=== PATIENT | male | born 1955 | race Caucasian/White ===

== ENCOUNTER → 2023-04-18 14:56 | Outpatient (REF) | payer MEDICARE, OTHER, SELFPAY | LOC: HWRAD 14:56 | PROVIDERS: ATTENDING PHYSICIAN Internal Medicine | DX: N40.1 Benign prostatic hyperplasia with lower urinary tract symptoms (principal) | CPT/HCPCS: 76857 ==

== ENCOUNTER → 2023-08-14 14:14 | Outpatient (REF) | payer MEDICARE, OTHER, SELFPAY | LOC: HWRAD 14:14 | PROVIDERS: ATTENDING PHYSICIAN Internal Medicine | DX: E78.2 Mixed hyperlipidemia (principal) | CPT/HCPCS: 75571 ==

== ENCOUNTER → 2023-09-18 11:28 | Outpatient (REF) | payer MEDICARE, OTHER, SELFPAY | LOC: PAVMRI 11:28 | PROVIDERS: ATTENDING PHYSICIAN Internal Medicine | DX: R97.20 Elevated prostate specific antigen [PSA] (principal) | CPT/HCPCS: 72197; A9575 ==

== ENCOUNTER 2024-03-19 19:00 | Emergency (ER) | payer MEDICARE, OTHER, SELFPAY ==
[2024-03-19 19:08] VITALS: BP 166/89
[2024-03-19 19:25] LABS: % Basophils 0.5 % (0-2); % Eosinophils 4.8 % (0-6); % Immature Granulocytes 1.1 % (0-0.5); % Lymphocytes 20.4 % (20.5-51.1); % Monocytes 7.9 % (1.7-9.3); % Neutrophils 65.3 % (42.2-75.2); Absolute Eosinophils 0.4 10^3/uL (0-0.7); Absolute Immature Granulocytes 0.1 10^3/uL (0-0.05); Absolute Lymphocytes 1.5 10^3/uL (1.2-3.4); Absolute Monocytes 0.6 10^3/uL (0.1-0.6); Absolute Neutrophils 4.9 10^3/uL (1.4-6.5); Hematocrit 37.9 % (39.0-52.0); Hemoglobin 13.4 g/dL (13.0-18.0); Mean Corp Hgb Conc. 35.4 g/dL (33.0-37.0); Mean Corpuscular Hgb 29.7 pg (27.0-31.0); Mean Platelet Volume 8.6 fL (7.4-10.4); Nucleated Red Blood Cells % 0 % (-); Platelet Count 175 10^3/uL (130-400); Red Blood Cell Count 4.51 10^6/uL (4.70-6.10); Red Cell Dist. Width 12.3 % (11.5-14.5); White Blood Cell Count 7.6 10^3/uL (4.8-10.8)
[2024-03-19 19:49] LABS: ALT (SGPT) 22 U/L (0-50); AST (SGOT) 23 U/L (17-59); Albumin 4.3 g/dl (3.5-5.0); Alkaline Phosphatase 75 U/L (38-126); Blood Urea Nitrogen 14 mg/dl (9-20); Calcium 9.3 mg/dl (8.4-10.2); Carbon Dioxide 25 mmol/L (22-30); Chloride 103 mmol/L (98-107); Glucose 122 mg/dl (70-99); Potassium 4.1 mmol/L (3.5-5.1); Sodium 137 mmol/L (135-145); Total Bilirubin 0.7 mg/dl (0.2-1.3); eGFR > 60.00
[2024-03-19 19:50] LABS: COVID-19 Antigen Negative (Negative)
[2024-03-19 20:54] VITALS: BMI 35.2
[2024-03-19 20:56] VITALS: BP 151/84
--- NOTE | 2024-03-19 21:41 | ED.GENMED ---
History of Present Illness
General
Chief Complaint: Cold/Flu/URI Symptoms
Source: patient
Exam Limitations: none
Time Seen by Provider: 03/19/24 20:41
Nursing documentation reviewed up to this point in time: agreed with
History of Present Illness
History of Present Illness:
Patient presents to ED secondary to 1 week history of generalized body ache, intermittent cough, headache, sore throat, along with decreased appetite. Denies chest pain or shortness of breath. Denies abdominal pain. Denies nausea, vomiting, or
diarrhea. Denies rash. Denies recent travel. However, patient has been to multiple sporting events recently preceding his symptoms, where he was in close proximity to a lot of people. Denies recent change in medications or diet. Patient also
reporting bilateral eye discharge, which is causing blurry vision. In addition, patient who has had history of gout in his toes, feels as though he is also having a flareup of his gout.
Past History
Past History
ED Past Medical History: GERD, Other (Small bowel obstructions) and Other (Sleep apnea utilizes CPAP, DVT following knee surgery)
ED Past Surgical History: Orthopedic (Knee) and Other (Hernia repair x2, bowel obstructions )
Social History
Tobacco: Non-smoker
Alcohol: Occasional
Personal:
Living: with family
Employment: Employed
Family History
Family History: Other (Noncontributory)
Review of Systems
Review of Systems
Allergies reviewed?: Yes
All Other Systems: ROS reviewed and negative except as documented in HPI and ROS
Constitutional: Reports no symptoms; Denies fever or chills
Respiratory: Reports cough; Denies trouble breathing
Cardiac: Reports no symptoms
ABD/GI: Reports no symptoms; Denies vomiting or diarrhea
: Reports no symptoms
Musculoskeletal: Reports muscle pain and other (toe pain)
Skin: Reports no symptoms
Neurological: Reports headache; Denies dizzy, weakness or numbness
Phy Exam
Physical Exam
Physical Exam:
Physical Exam
General: mild distress, not acutely ill. afebrile
Head: nc/at. eomi
Neck: supple. no meningeal signs. normal range of motion
Heart: s1/s2 regular rate and rhythm, no murmur. equal radial pulses.
Lungs: no acute respiratory distress. clear bilaterally
Abdomen: normal bowel sounds. not tender.
Neuro: alert and oriented x 3. no focal neurological deficits
Skin: no rash
Psychiatric: well kept. interactive and cooperative
Extremities: no edema. mild erythema/swelling/tenderness noted over right 1st toe, without open wound
Course
Orders/Labs/Results
Orders:
Orders
03/19/24 19:11
CR Chest - 2 Views Urgent
Comment:
Reason For Exam: cough
03/19/24 19:14
COVID-19 Antigen Urgent
Source: Nasal Swab
Influenza A+B Rapid Molecular Urgent
MARIANA Source: Nasal Swab
Specimen Description:
03/19/24 19:16
Complete Blood Count/With Diff Urgent
Comprehensive Metabolic Panel Urgent
03/19/24 21:50
Azithromycin [Zithromax] 500 mg PO NOW STA
Oxycodone/Acetaminophen [Percocet 5/325] 1 tablet PO NOW STA
03/19/24 22:11
Prednisone [Deltasone] 50 mg PO NOW STA
Abnormal Lab Results
03/19/24
19:16
RBC 4.51 L 10^6/uL
(4.70-6.10)
Hct 37.9 L %
(39.0-52.0)
Abs Immat Gran (auto) 0.1 H 10^3/uL
(0-0.05)
Immature Gran % 1.1 H %
(0-0.5)
Lymphocytes % 20.4 L %
(20.5-51.1)
Glucose 122 H mg/dl
(70-99)
03/19/24 19:16
03/19/24 19:16
Vital Signs
Initial and Last Documented VS:
Initial Vital Signs
Temp Pulse Resp BP Pulse Ox
99.4 F 95 19 166/89 97
03/19/24 19:08 03/19/24 19:08 03/19/24 19:08 03/19/24 19:08 03/19/24 19:08
Last Documented Vital Signs
Temp Pulse Resp BP Pulse Ox
98.8 F 87 18 151/84 97
03/19/24 20:56 03/19/24 20:56 03/19/24 20:56 03/19/24 20:56 03/19/24 20:56
MDM/Problems Addressed
MDM/Problems Addressed:
History and exam consistent with likely viral syndrome, causing exacerbation of his underlying gouty arthritis. Otherwise, patient is afebrile, hemodynamically stable, and neurologically intact, without any evidence of dehydration nor any
significant respiratory distress. Patient with an unremarkable workup in ED, including blood work, flu swab, COVID test, and chest x-ray. In light of patient's worsening symptoms, and component of congestion/inflammatory response, patient will be
started on short course of steroids along with Z-Tj, as well as recommendation for PCP follow-up as an outpatient.
*Critical Care Note
Total Time (30-74mins, 75-104mins- exclusive of procedures): Not Applicable
ED Attending Note
-
Portions of this chart may have been created with voice recognition software.� Occasional wrong word or��sound alike� substitutions may have occurred due to the inherent limitations of voice recognition software.
Discharge Plan
Departure
Patient Disposition: Home (Routine Discharge)
Date of Disposition: 03/19/24
Time of Disposition: 21:48
Patient with high blood pressure during this ER visit?: Yes
Condition: Good
Discharge Problem:
Viral syndrome
Instructions: Viral Syndrome (DC)
Prescriptions:
New
azithromycin [Zithromax] 250 mg tablet
250 mg PO DAILY Qty: 4 0RF
oxycodone-acetaminophen [Percocet] 5-325 mg Tablet
1 tab PO Q6HPRN PRN (Reason: pain) Qty: 12 0RF
prednisone 50 mg tablet
50 mg PO DAILY Qty: 2 0RF
No Action
ibuprofen 800 MG tablet
800 mg PO Q6HPRN PRN (Reason: pain) Qty: 30 0RF
hydrocodone-acetaminophen 1 TABLET tablet
1 - 2 tab PO QIDPRN PRN (Reason: pain) Qty: 15 0RF
tamsulosin 0.4 MG capsule
0.4 mg PO DAILY Qty: 14 0RF
oxycodone-acetaminophen 5 MG/325 MG tablet
1 tab PO Q4HPRN PRN (Reason: pain) Qty: 20 0RF
Activity Restrictions/Additional Instructions:
As discussed, please follow-up with your primary care physician for reevaluation. Your prescriptions have been sent electronically to [facility] pharmacy on [facility] in [place].
Interventions
Interventions:
*Risk Screen - Suicide Last Done: 03/19/24 20:52
*General Assessment Last Done: 03/19/24 20:52
*Neglect/Abuse Screening Last Done: 03/19/24 20:52
*ED COVID-19 Vaccine History Last Done: 03/19/24 20:52
*Nursing Disposition Last Done: 03/19/24 22:26
ED- Pulmonary Assessment Last Done: 03/19/24 20:55
Discharge Date and Time
Discharge Date/Time: 03/19/24 22:28
Print Language: LAO
[2024-03-19] MEDS: PERCOCET 5/325 1 TABLET PO (22:16)
[2024-03-19] MEDS: ZITHROMAX 500 MG PO (22:17)
[2024-03-19] MEDS: DELTASONE 50 MG PO (22:17)
== END 2024-03-19 22:28 | disposition home or self-care (01) ==
LOC: EMR 19:00
PROVIDERS: Student in an Organized Health Care Education/Training Program; EMERGENCY PHYSICIAN Emergency Medicine; FAMILY PHYSICIAN Internal Medicine
DX: B34.9 Viral infection, unspecified (principal); R03.0 Elevated blood-pressure reading, without diagnosis of hypertension; Z11.52 Encounter for screening for COVID-19; M10.9 Gout, unspecified
CPT/HCPCS: 99284; 71046; 80053; 85025; 87502; 87811

== ENCOUNTER → 2024-03-21 09:57 | Outpatient (REF) | payer MEDICARE, OTHER, SELFPAY | LOC: DHSLP 09:57 | PROVIDERS: ATTENDING PHYSICIAN Internal Medicine | DX: G47.33 Obstructive sleep apnea (adult) (pediatric) (principal) | CPT/HCPCS: 95800 ==